=== PATIENT | male | born 2000 | race Hispanic/Latino ===

== ENCOUNTER 2024-04-02 20:56 | Emergency (ER) | payer SELFPAY ==
[2024-04-02] MEDS ORDERED: Ondansetron PF 4 MG/2 ML Vial ONE (21:18)
[2024-04-02 21:23] LABS: Hematocrit 51.6 % (42.0-52.0); Hemoglobin 17.2 g/dL (14.0-18.0); Mean Corpuscular HGB CONC 33.3 g/dL (32.0-36.0); Mean Corpuscular Hemoglobin 29.4 pg (27.0-31.0); Mean Corpuscular Volume 88.2 fl (78.0-98.0); Platelet Count 298 10x3/uL (130-400); RBC Distribution Width 11.5 % (11.5-14.5); Red Blood Cell (RBC) Count 5.84 mill/uL (4.70-6.10); White Blood Cell (WBC) Count 14.9 10x3/uL (4.8-10.8)
[2024-04-02 21:24] LABS: Lymphocytes 14 % (21-51); MDiff Complete? YES; Monocytes 4 % (0-10); Neutrophil 82 % (42-75)
[2024-04-02] MEDS ORDERED: Multivit, Adult Inj 10 ML VIAL ONE (21:33)
[2024-04-02] MEDS ORDERED: Folic Acid 5 MG/ML MDV ONE (21:33)
[2024-04-02] MEDS ORDERED: Thiamine HCl 200 MG/2 ML VIAL ONE (21:33)
[2024-04-02] MEDS ORDERED: Dextrose 5 %-0.45 % NaCl 1,000 ML ONE (21:33)
[2024-04-02 21:41] LABS: ALT (SGPT) 91 U/L (8-55); AST (SGOT) 43 U/L (5-34); Albumin 4.8 g/dL (3.5-5.0); Alkaline Phosphatase 59 U/L (40-110); Anion Gap 21 mmol/L (10-20); BUN (Urea Nitrogen) 11 mg/dL (8.9-20.6); Bilirubin, Total 1.4 mg/dL (0.2-1.2); Calc. Creatinine Clearance 0 mL/min (70-130); Calcium 10.2 mg/dL (7.8-10.44); Carbon Dioxide 24 mmol/L (22-29); Chloride 101 mmol/L (98-107); Estimated GFR 95; Globulin 3.6 g/dL (2.4-3.5); Glucose 121 mg/dL (70-105); Lipase 36 U/L (8-78); Potassium 3.8 mmol/L (3.5-5.1); Protein, Total 8.4 g/dL (6.0-8.3); Sodium 142 mmol/L (136-145)
== END 2024-04-03 00:11 | disposition home or self-care (01) ==
LOC: MADERS 20:56
DX: R11.2 Nausea with vomiting, unspecified (principal); R51.9 Headache, unspecified; Z55.6 Problems related to health literacy
CPT/HCPCS: 80053; 83690; 85025; 96365; 96366; 96375; J2405; J3411; J7042